=== PATIENT | female | born 1985 | race Two or more races ===

== ENCOUNTER 2019-08-10 14:57 | Inpatient (IN) | payer OTHER ==
[~2019-08-10] VITALS: Ht 157.5 cm; Wt 60.8 kg
[2019-09-02] MEDS ORDERED: PRENATAL TABLE1 EAC1 PO (00:52)
== END 2019-09-04 10:31 | disposition home or self-care (01) | DRG 768 ==
LOC: OB/GYN 08-30 15:00 → LDR 09-01 23:41 → OB/GYN 09-02 13:18
PROVIDERS: ADMIT Obstetrics & Gynecology
PROC: 4A1HXCZ Monitoring of Products of Conception, Cardiac Rate, External Approach (ICD-10-PCS; 2019-09-01)
PROC: 10E0XZZ Delivery of Products of Conception, External Approach (ICD-10-PCS; principal; 2019-09-02)
PROC: 0DQR0ZZ Repair Anal Sphincter, Open Approach (ICD-10-PCS; 2019-09-02)
PROC: 0W8NXZZ Division of Female Perineum, External Approach (ICD-10-PCS; 2019-09-02)
PROC: 4A033R1 Measurement of Arterial Saturation, Peripheral, Percutaneous Approach (ICD-10-PCS; 2019-09-02)
DX: O70.21 Third degree perineal laceration during delivery, IIIa (principal); Z37.0 Single live birth; Z3A.40 40 weeks gestation of pregnancy; Z22.330 Carrier of Group B streptococcus

== ENCOUNTER 2019-08-24 15:32 | Outpatient (CLI) | payer OTHER | END 2019-08-24 16:23 | disposition home or self-care (01) | LOC: NST 15:32 | DX: Z34.83 Encounter for supervision of other normal pregnancy, third trimester (principal) ==